=== PATIENT | female | born 1955 | race Caucasian/White ===

== ENCOUNTER 2016-10-08 05:49 | Day surgery (SDC) | payer BC ==
--- NOTE | 2016-10-07 14:27 | GHP ---
[f rep st] PREOP HISTORY AND PHYSICAL DATE OF ADMISSION: 10/08/2016 HISTORY OF PRESENT ILLNESS: Patient is scheduled for surgery October 08, 2016 for correction of her left great toe. She presented to [facility] with a chief complaint of severe ar thritis and pain to the left great toe. She had been having this for years, progressively getting wo rse. The thickness of the joint had gotten more severe over time and was having some difficulty fitt ing into certain shoes. She has had to decrease her activity and exercise due to the deformity and p ain that she is having in the left great toe. At this point, she wants to get this taken care of on a permanent basis. PAST MEDICAL HISTORY: She is an asthmatic, well-controlled with dycu-led-sedhmdi medications. She madera s some generalized joint pain and stiffness with some generalized arthritis, but managed well with ve [id number] medications. SOCIAL HISTORY: She has never used any tobacco products. Alcohol use: She drinks wine in the ng time, a glass of wine every evening. She enjoys hiking, walking on a consistent basis, particular ly during the summertime. She has been unable to do the long hikes that she enjoys because of her le ft great toe pain. ALLERGIES: She has noted no known drug allergies. At her preop appointment, we discussed her condition. REVIEW OF SYSTEMS: She was alert and oriented. She denied any chronic headaches, fever, chills. Shayy morelos has had no recent changes in vision, hearing, nasal or throat problems. She denied any cardiac arr hythmias. No chest pain. No dermatologic problems. No new neurologic or other musculoskeletal prob lems. She said she wants to get her foot taken care of so she can get back to a healthy, active life style. Conservatively, we tried inserts, changing shoes, stiffer soled shoes, decreased activity, al l of which have failed to alleviate her symptoms. At this point, the arthritis in the joint is so se angeles she cannot move the toe to end range of motion without causing severe pain. OBJECTIVE: EXTREMITIES: She has normal pulses, 2/4 on the dorsal and posterior tibial arteries with a capillary flow of less than 5 seconds to the digits x10. She has minimal varicosities and no mane a at either extremity. NEUROLOGIC EVALUATION: Sharp, dull, light touch, proprioception all intact a nd symmetric to the digital level. DERMATOLOGIC: Evaluation showed normal temperature, texture and turgor with normal hair distribution to both extremities. MUSCULOSKELETAL: Evaluation showed normal muscle mass and tone to the anterolateral and posterior leg muscles, as well as the intrinsic arch mu scles. She has pain-free range of motion of the ankle subtalar and midtarsal joints bilateral. She did fracture her ankle last year in May ,did not require surgery. It was a spiral fibular frac ture which healed uneventfully and causes her no pain with exercise activity. She has limited dorsif lexion on the left great toe to no more than 30 degrees from neutral and almost no plantarflexion. T here is severe pain with palpation of the joint both dorsally and plantarly. There is pain along the sesamoidal apparatus plantarly. 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 She has multiple osteophytes in the joint and has gotten worse over time. ASSESSMENT: Hallux limitus deformity, left, severe and progressive. PLAN: At this point is to recommend permanent correction, joint cleanup with stepdown osteotomy and decompression of the joint. At her preop appointment, we discussed risks and complications of the pr ocedure including residual pain, delayed healing. Patient understood. Consent form was signed. She was given oral and written postop instructions, along with a prescription for postop pain meds, Perc ocet , #30, 1 tab p.o. q.4-6h p.r.n. pain. She will be followed up x3 days postop at [facility], and she was given my cell phone number for a 24 hour call should she have any problems or questions. /[id number]/MODL
[2016-10-08] MEDS ORDERED: LIDOCAINE 1% 5 ML SDV ONE (06:01)
[2016-10-08] MEDS ORDERED: LIDO/EPI 1% **Not for Epidural 20 ML MDV ONE (06:50)
[2016-10-08] MEDS ORDERED: BUPIVACAINE 0.25% 30 ML SDV ONE (06:50)
[2016-10-08] MEDS ORDERED: ceFAZolin 1 GM/5 ML SYR ONE (06:50)
[2016-10-08] MEDS ORDERED: MIDAZOLAM 2 MG/2 ML VIAL ONE (07:15)
[2016-10-08] MEDS ORDERED: fentaNYL 100 MCG/2 ML INJ ONE ×2 (07:16→08:52)
[2016-10-08] MEDS ORDERED: PROPOFOL/EMULSION 500 MG/50 ML BOTTLE IV ONE (07:16)
[2016-10-08] MEDS ORDERED: TRIAMCINOLONE ACETONIDE 40 MG/ML VIAL ONE (07:26)
[2016-10-08] MEDS ORDERED: OXYCODONE/APAP 5/325 TAB ONE (09:10)
--- NOTE | 2016-10-08 09:36 | GOP ---
[f rep st] OPERATIVE REPORT DATE OF OPERATION: 10/08/2016 SURGEON: Gagan Stern DPM ANESTHESIA: MD Aimee. MAC anesthesia plus local infiltration of 3 cc of 1% lidocaine with epineph rine and 3 cc of 0.25% Marcaine plain and a Canales type block. 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 PROCEDURE PERFORMED: FINDINGS: DESCRIPTION OF PROCEDURE: The patient was taken to the operating room and placed in the supine posit ion. After local MAC anesthesia, the left lower extremity was elevated, prepped and draped in the [facility] sterile OR fashion, achieving a sterile field about the entire distal aspect of the extremity. T he foot was elevated, exsanguinated, and tourniquet was inflated to 225 mmHg. Total tourniquet time was less than 1 hour. Attention was directed to the medial aspect of the left great toe, where an approximately 3-4 inch li near incision was made on the medial aspect of the 1st metatarsophalangeal joint. Superficial vessel s were clamped and bovied as necessary, and care was taken to preserve the neurovascular status to th e area. The capsule was entered via a linear incision dorsally. There were multiple bony fragments on the dorsal aspect of the joint and also on the lateral aspect of the joint, and these were all rem violette from the operative site. There was significant thinning of the cartilage on the metatarsal head as well as the base of the proximal phalanx, but there was some cartilage left on the joint. A dors al osteophyte was removed from the metatarsal utilizing a bone saw. At this point, the K wire was pl aced through the metaphysis of the metatarsal, orienting the K wire such that it would plantar flex t he metatarsal as well as move it slightly laterally. The K wire was placed from dorsomedial to plant ar lateral. Utilizing this K wire as an apex for the V, or chevron-type osteotomy, this osteotomy was carried out . The metatarsal head was shifted plantarly and slightly laterally, impacted upon itself and held fa st with the same 035 K wire as temporary fixation. Utilizing AO technique, a single 2.4 mm OsteoMed screw was placed through the longer dorsal wing and retrograded back into the metatarsal with excelle nt compression noted. The K wire was removed from the operative site. Redundant bone was removed do rsally and medially and rasped smooth utilizing a rotary bur. The great toe was taken through range of motion and deemed to be anatomically aligned, and it had greater than 45 degrees of dorsiflexion i ntraoperatively, which was at least 15 degrees more than she had going into the surgery. The area wa s flushed copiously with dilute antibiotic solution. Redundant capsule was capsulotomized medially. The long flexor tendon was inspected intraoperatively through the medial incision to assure that the tendon was intact and indeed functioning and it was intact. At this point, the capsule was then reapproximated utilizing 3-0 Vicryl in a simple interrupted sutur e. The periosteum was reapproximated utilizing 4-0 Vicryl in a horizontal mattress suture. Subcu cl osure was carried out via 4-0 Vicryl in a horizontal mattress suture, and skin closure was carried ou t via 4-0 Prolene in a running subcuticular stitch. The incision was reinforced with Mastisol and St siria-Strips. Adaptic, 4 x 4's, Crow, and Coban were utilized as a dressing with mild compression. T he tourniquet was released and all digits returned to uniform and pink color with normal capillary fl ow immediately. The patient went into recovery in a satisfactory state with all vital signs stable. Her prognosis is excellent for rapid recovery, and she will be followed up x3 days postop at [facility]. She was also given my cell phone number for 24-hour call should she have any problems or qu estions. PROCEDURE: 1. Modified Oneal bunionectomy with stepdown osteotomy and screw fixation. 2. Injection into the plantar fibroma, left arch. COMPLICATIONS: There were no complications. DRAINS: No drains were placed in the operative site. The patient tolerated the procedure very well. /[id number]/MODL
== END 2016-10-08 09:45 | disposition home or self-care (01) ==
LOC: FSGY 05:49
PROVIDERS: ATTEND Podiatrist
PROC: 0SQN0ZZ Repair Left Metatarsal-Phalangeal Joint, Open Approach (ICD-10-PCS; principal; 2016-10-08 07:15)
PROC: 0SC Lower Joints, Extirpation (ICD-10-PCS; principal; 2016-10-08 07:15)
DX: M21.612 Bunion of left foot (principal); M72.2 Plantar fascial fibromatosis; J45.909 Unspecified asthma, uncomplicated; M19.90 Unspecified osteoarthritis, unspecified site; E03.9 Hypothyroidism, unspecified
CPT/HCPCS: 28296; C1769; C1713; J0690; J2250; J2704; J3010; J3301